=== PATIENT | male | born 1965 | race Hispanic/Latino ===

== ENCOUNTER 2024-05-04 05:29 | Emergency (ER) | payer BC ==
[2024-05-04] MEDS ORDERED: KETOROLAC 30 MG/ML INJ ONE (05:44)
[2024-05-04] MEDS ORDERED: ONDANSETRON 4 MG/2 ML VIAL ONE (05:44)
[2024-05-04] MEDS ORDERED: METHYLPREDNISOLONE 125 MG INJ ONE (05:44)
[2024-05-04] MEDS ORDERED: HYDROCODONE/APAP 5/325 MG TAB ONE (05:45)
--- NOTE | 2024-05-04 06:24 | ER ---
Nurse's Notes [facility] Name: Ramírez Parrish Age: 58 yrs Sex: Male : 1965 Arrival Date: 05/04/2024 Time: 05:29 Bed 16 Private MD: Diagnosis: Idiopathic gout, right ankle and foot;Idiopathic gout, left ankle and foot;Tophaceous gout right metatarsophalangeal joint, tophaceous gout left first metatarsophalangeal joint Presentation: 05/04 05:34 Chief complaint: EMS states: bilateral foot and leg pain that started a week ago. cp4 Coronavirus screen: Client denies travel out of the [place] in the last 14 days. At this time, the client does not indicate any symptoms associated with coronavirus-19. Ebola Screen: Patient negative for fever greater than or equal to 101.5 degrees Fahrenheit, and additional compatible Ebola Virus Disease symptoms Patient denies exposure to infectious person. Patient denies travel to an Ebola-affected area in the 21 days before illness onset. No symptoms or risks identified at this time. Initial Sepsis Screen: Does the patient meet any 2 criteria? No. Patient's initial sepsis screen is negative. Does the patient have a suspected source of infection? No. Patient's initial sepsis screen is negative. Risk Assessment: Do you want to hurt yourself or someone else? Patient reports no desire to harm self or others. Onset of symptoms was April 28, 2024. 05:34 Method Of Arrival: EMS: [place] [id number] 05:34 Acuity: RENATO 4 cp4 Triage Assessment: 05:36 General: Appears in no apparent distress. uncomfortable, Behavior is calm, cooperative, cp4 appropriate for age. Pain: Complains of pain in right foot, left foot, right leg and left leg Pain does not radiate. Pain currently is 10 out of 10 on a pain scale. EENT: No signs and/or symptoms were reported regarding the EENT system. Neuro: Level of Consciousness is awake, alert, obeys commands, Oriented to person, place, time, situation. Cardiovascular: Patient's skin is warm and dry. Respiratory: Airway is patent Respiratory effort is even, unlabored. GI: No signs and/or symptoms were reported involving the gastrointestinal system. : No signs and/or symptoms were reported regarding the genitourinary system. Derm: No signs and/or symptoms reported regarding the dermatologic system. Musculoskeletal: Reports pain in right foot, left foot, right leg and left leg. Historical: - Allergies: 05:36 No Known Allergies; cp4 - PMHx: 05:36 Hypertensive disorder; cp4 - Immunization history:: Adult Immunizations up to date. - Infectious Disease History:: Denies. - Social history:: Smoking status: Patient denies any tobacco usage or history of. - Family history:: not pertinent. Screenin:38 [facility] ED Fall Risk Assessment (Adult) History of falling in the last 3 months, cp4 including since admission No falls in past 3 months (0 pts) Confusion or Disorientation No (0 pts) Intoxicated or Sedated No (0 pts) Impaired Gait No (0 pts) Mobility Assist Device Used No (0 pt) Altered Elimination No (0 pt) Score/Fall Risk Level 0 - 2 = Low Risk Oriented to surroundings, Maintained a safe environment, Assessed \T\ reinforced patient's understanding of fall precautions, Hourly rounding (assess needs \T\ fall precautionary measures) done. Abuse screen: Denies threats or abuse. Nutritional screening: No deficits noted. Tuberculosis screening: No symptoms or risk factors identified. Assessment: 05:38 Reassessment: No changes from previously documented assessment. cp4 Vital Signs: 05:34 BP 125 / 78; Pulse 87; Resp 18; Temp 98.5; Pulse Ox 98% ; Pain 10/10; cp4 06:38 BP 129 / 85; Pulse 86; Resp 18; Pulse Ox 100% ; cp4 05:34 Pain Scale: Adult cp4 [place] Coma Score: 05:38 Eye Response: spontaneous(4). Motor Response: obeys commands(6). Verbal Response: sp4 oriented(5). Total: 15. ED Course: 05:34 Patient arrived in ED. cp4 05:34 Meghan Garcia is Primary Nurse. cp4 05:35 Jose Leary MD is Attending Physician. sp4 05:36 Triage completed. cp4 05:36 Arm band placed on right wrist. Patient placed in an exam room, on a stretcher. cp4 05:38 Bed in low position. Call light in reach. Side rails up X2. Provided Education on: gout.cp4 05:38 No provider procedures requiring assistance completed. Maintain EMS IV. Dressing cp4 intact. Good blood return noted. Site clean \T\ dry. Gauge \T\ site: 20 LAC. Flushed with 10 mL NS. 05:49 Initial lab(s) drawn, by me, sent to lab. cp4 06:40 intact, bleeding controlled, No redness/swelling at site. Pressure dressing applied. cp4 Administered Medications: 05:49 Drug: MethylPrednisoLONE IVP 125 mg IVP once Route: IVP; Site: left antecubital; cp4 06:39 Follow up: Response: No adverse reaction cp4 05:49 Drug: HYDROcodone-acetaminophen PO 5 mg-325 mg 2 tabs PO once Route: PO; cp4 06:39 Follow up: Response: No adverse reaction; Pain is decreased cp4 05:49 Drug: Ketorolac IVP 30 mg IVP once Route: IVP; Site: left antecubital; cp4 06:39 Follow up: Response: No adverse reaction; Pain is decreased cp4 05:49 Drug: Ondansetron IVP 4 mg IVP once; over 2 minutes Route: IVP; Site: left antecubital; cp4 06:39 Follow up: Response: No adverse reaction cp4 Medication: 05:38 VIS not applicable for this client. cp4 Outcome: 06:23 Discharge ordered by . sp4 06:40 Discharged to home ambulatory, cp4 06:40 Condition: stable 06:40 Discharge instructions given to patient, family, Instructed on discharge instructions, follow up and referral plans. medication usage, Demonstrated understanding of instructions, follow-up care, medications, Prescriptions given X 2, 06:40 Patient left the ED. cp4 Signatures: Jose Leary MD MD sp4 Meghan Garcia cp4
--- NOTE | 2024-05-04 06:24 | EDPHYS ---
Physician Documentation [facility] Name: Ramírez Parrish Age: 58 yrs Sex: Male : 1965 Arrival Date: 05/04/2024 Time: 05:29 Bed 16 Private MD: ED Physician Jose Leary HPI: 05/04 05:36 This 58 yrs old Male presents to ER via EMS with complaints of Leg Pain. sp4 05:38 58-year-old male presents with acute right and left foot pain associated with history sp4 of chronic gout.. Patient has moderate to severe thirst metatarsal phalangeal swelling associated with tophaceous gout. There is lesser swelling and pain. to the left first metatarsal phalangeal joint associated with tophaceous gout, patient overall is reporting pain started 4 days ago. Historical: - Allergies: 05:36 No Known Allergies; cp4 - PMHx: 05:36 Hypertensive disorder; cp4 - Immunization history:: Adult Immunizations up to date. - Infectious Disease History:: Denies. - Social history:: Smoking status: Patient denies any tobacco usage or history of. - Family history:: not pertinent. ROS: 05:38 Constitutional: Negative for fever, chills, and weight loss, sp4 05:38 MS/extremity: Positive for Positive for moderate to severe right foot pain and swelling associated with gout. Positive for moderate to severe left foot pain and swelling associated with gout, 05:38 All other systems are negative, Exam: 05:38 Constitutional: This is a well developed, well nourished patient who is awake, alert, sp4 and in no acute distress. Head/Face: Normocephalic, atraumatic. Eyes: Pupils equal round and reactive to light, extra-ocular motions intact. Lids and lashes normal. Conjunctiva and sclera are not injected. Cornea within normal limits. Periorbital areas with no swelling, redness, or edema. ENT: Nares patent. No nasal discharge, no septal abnormalities noted. Tympanic membranes are normal and external auditory canals are clear. Oropharynx with no redness, swelling, or masses, exudates, or evidence of obstruction, uvula midline. Mucous membranes moist. Neck: Trachea midline, no thyromegaly or masses palpated, and no cervical lymphadenopathy. Supple, full range of motion without nuchal rigidity, or vertebral point tenderness. Chest/axilla: Normal chest wall appearance and motion. Nontender with no deformity. No lesions are appreciated. Cardiovascular: Regular rate and rhythm with a normal S1 and S2. No gallops, murmurs, or rubs. Normal PMI, no JVD. No pulse deficits. Respiratory: Lungs have equal breath sounds bilaterally, clear to auscultation and percussion. No rales, rhonchi or wheezes noted. No increased work of breathing, no retractions or nasal flaring. Abdomen/GI: Soft, with normal bowel sounds. No distension or tympany. No guarding or rebound. No evidence of tenderness throughout. Back: No spinal tenderness. No costovertebral tenderness. Skin: Warm, dry with normal turgor. Normal color with no rashes, no lesions, and no evidence of cellulitis. MS/ Extremity: Pulses equal, no cyanosis. Neurovascular intact. Full, normal range of motion. Positive for moderate to large right metatarsal phalangeal swelling pain and tophi. Positive moderate left metatarsal phalangeal joint swelling associated with tophi. Exam consistent with acute on chronic gout Neuro: Awake and alert, GCS 15, oriented to person, place, time, and situation. Cranial nerves II-XII grossly intact. Motor strength 5/5 in all extremities. Sensory grossly intact. Psych: Awake, alert, with orientation to person, place and time. Behavior, mood, and affect are within normal limits Vital Signs: 05:34 BP 125 / 78; Pulse 87; Resp 18; Temp 98.5; Pulse Ox 98% ; Pain 10/10; cp4 06:38 BP 129 / 85; Pulse 86; Resp 18; Pulse Ox 100% ; cp4 05:34 Pain Scale: Adult cp4 [place] Coma Score: 05:38 Eye Response: spontaneous(4). Motor Response: obeys commands(6). Verbal Response: sp4 oriented(5). Total: 15. MDM: 05:36 Medical Screening Exam initiated sp4 05:38 Differential diagnosis: dislocation, closed fracture, contusion, abrasion, tendonitis. sp4 Data reviewed: vital signs, nurses notes, old medical records. 05/04 05:36 Order name: [facility]; Complete Time: 06:15 sp4 Administered Medications: 05:49 Drug: MethylPrednisoLONE IVP 125 mg IVP once Route: IVP; Site: left antecubital; cp4 06:39 Follow up: Response: No adverse reaction cp4 05:49 Drug: HYDROcodone-acetaminophen PO 5 mg-325 mg 2 tabs PO once Route: PO; cp4 06:39 Follow up: Response: No adverse reaction; Pain is decreased cp4 05:49 Drug: Ketorolac IVP 30 mg IVP once Route: IVP; Site: left antecubital; cp4 06:39 Follow up: Response: No adverse reaction; Pain is decreased cp4 05:49 Drug: Ondansetron IVP 4 mg IVP once; over 2 minutes Route: IVP; Site: left antecubital; cp4 06:39 Follow up: Response: No adverse reaction cp4 Disposition Summary: 05/04/24 06:23 Discharge Ordered Notes: Location: Home sp4 Problem: new sp4 Symptoms: have improved sp4 Condition: Stable sp4 Diagnosis - Idiopathic gout, right ankle and foot sp4 - Idiopathic gout, left ankle and foot sp4 - Tophaceous gout right metatarsophalangeal joint, tophaceous gout left first sp4 metatarsophalangeal joint Followup: sp4 - With: Private Physician - When: 7 - 10 days - Reason: Recheck today's complaints Discharge Instructions: - Discharge Summary Sheet sp4 - Gout sp4 Forms: - Patient Portal Instructions sp4 Prescriptions: - Prednisone 20 mg Oral tablet - take 2 tablets ORAL route once daily for 10 days; 20 tablet; Refills: 0, sp4 Product Selection Permitted Signatures: Dispatcher [employer] Jose Seth MD MD sp4 Meghan Garcia cp4
[2024-05-04 13:03] VITALS: TEMP 98.5
[2024-05-04 13:04] VITALS: BP 129/85; O2SAT 100
== END 2024-05-04 06:40 | disposition home or self-care (01) ==
LOC: ER 05:29
DX: M10.071 Idiopathic gout, right ankle and foot (principal); M10.072 Idiopathic gout, left ankle and foot; I10 Essential (primary) hypertension
CPT/HCPCS: 80048; 36415; 96375; 96374; 99284; J2919; J2405